=== PATIENT | male | born 1965 | race Caucasian/White ===

== ENCOUNTER 2023-10-23 07:53 | Outpatient (RCR) | payer BC, SELFPAY | END 2023-10-23 23:59 | disposition home or self-care (01) | LOC: RPT 07:53 | PROVIDERS: ATTENDING PHYSICIAN Physician Assistant Medical; FAMILY PHYSICIAN Internal Medicine | DX: M48.02 Spinal stenosis, cervical region (principal); Z73.6 Limitation of activities due to disability; Z98.1 Arthrodesis status | CPT/HCPCS: 97010; 97110; 97162; 97530 ==

== ENCOUNTER → 2023-10-23 09:14 | Outpatient (REF) | payer BC, SELFPAY ==
[2023-10-23 10:00] LABS: Amphetamines Negative (Negative); Barbiturates Negative (Negative); Benzodiazepines Positive (Negative)
[2023-10-23 10:01] LABS: Buprenorphine Negative (Negative); Cocaine Negative (Negative); Marijuana Negative (Negative); Methadone Negative (Negative); Methamphetamines Negative (Negative); Opiates Negative (Negative); Phencyclidine Negative (Negative); Tricyclic Antidepressants Negative (Negative)
[2023-10-23 10:37] LABS: Fentanyl, Urine Negative (Negative)
== END ==
LOC: REG 09:14
PROVIDERS: ATTENDING PHYSICIAN Physician Assistant Medical; FAMILY PHYSICIAN Internal Medicine
DX: G89.4 Chronic pain syndrome (principal); Z79.891 Long term (current) use of opiate analgesic
CPT/HCPCS: 80306; 80307

== ENCOUNTER 2023-11-06 07:08 | Outpatient (RCR) | payer BC, SELFPAY | END 2023-11-13 07:31 | disposition home or self-care (01) | LOC: RPT 07:08 | PROVIDERS: ATTENDING PHYSICIAN Physician Assistant Medical; FAMILY PHYSICIAN Internal Medicine | DX: Z47.89 Encounter for other orthopedic aftercare (principal); M48.02 Spinal stenosis, cervical region; Z73.6 Limitation of activities due to disability; M62.81 Muscle weakness (generalized); M43.22 Fusion of spine, cervical region | CPT/HCPCS: 97110 ==

== ENCOUNTER → 2024-01-12 11:12 | Outpatient (REF) | payer BC, SELFPAY ==
[2024-01-14 14:50] LABS: Amphetamine, Urine Negative ng/mL (Cutoff 300); Barbiturates, Urine Negative ng/mL (Cutoff 200); Benzodiazepines, Urine PresumptivePOS ng/mL (Cutoff 200); Buprenorphine, Urine Negative ng/mL (Cutoff 5); Carisoprodol, Urine Negative ng/mL (Cutoff 100); Cocaine, Urine Negative ng/mL (Cutoff 150); Ethyl Glucuronide, Urine PresumptivePOS ng/mL (Cutoff 500); Fentanyl, Urine Negative ng/mL (Cutoff 1); Marijuana, Urine Negative ng/mL (Cutoff 50); Meperidine, Urine Negative ng/mL (Cutoff 200); Methadone, Urine Negative ng/mL (Cutoff 150); Opiates, Urine PresumptivePOS ng/mL (Cutoff 300); Oxycodone/Oxymorphone, Urine PresumptivePOS ng/mL (Cutoff 100); PCP (Phencyclidine), Urine Negative ng/mL (Cutoff 25); Propoxyphene, Urine Negative ng/mL (Cutoff 300); Tapentadol, Urine Negative ng/mL (Cutoff 200); Tramadol, Urine Negative ng/mL (Cutoff 100); Zolpidem, Urine Negative ng/mL (Cutoff 20)
== END ==
LOC: HWLAB 11:12
PROVIDERS: ATTENDING PHYSICIAN Physician Assistant Medical; FAMILY PHYSICIAN Internal Medicine
DX: Z00.00 Encounter for general adult medical examination without abnormal findings (principal); Z79.891 Long term (current) use of opiate analgesic
CPT/HCPCS: 80307

== ENCOUNTER → 2024-01-22 07:36 | Outpatient (REF) | payer BC, SELFPAY ==
[2024-01-22 09:59] LABS: % Basophils 0.7 % (0-2); % Eosinophils 2.4 % (0-6); % Immature Granulocytes 0.4 % (0-0.5); % Lymphocytes 44.5 % (20.5-51.1); % Monocytes 9.7 % (1.7-9.3); % Neutrophils 42.3 % (42.2-75.2); Absolute Basophils 0.1 10^3/uL (0-0.2); Absolute Eosinophils 0.2 10^3/uL (0-0.7); Absolute Lymphocytes 3.3 10^3/uL (1.2-3.4); Absolute Monocytes 0.7 10^3/uL (0.1-0.6); Absolute Neutrophils 3.1 10^3/uL (1.4-6.5); Hematocrit 42.3 % (39.0-52.0); Hemoglobin 14.5 g/dL (13.0-18.0); Mean Corp Hgb Conc. 34.3 g/dL (33.0-37.0); Mean Corpuscular Hgb 30.7 pg (27.0-31.0); Mean Corpuscular Volume 89.4 fL (80.0-94.0); Mean Platelet Volume 10.9 fL (7.4-10.4); Nucleated Red Blood Cells % 0 % (-); Platelet Count 241 10^3/uL (130-400); Red Blood Cell Count 4.73 10^6/uL (4.70-6.10); Red Cell Dist. Width 13.6 % (11.5-14.5); White Blood Cell Count 7.4 10^3/uL (4.8-10.8)
[2024-01-22 10:35] LABS: ALT (SGPT) 18 U/L (0-50); AST (SGOT) 26 U/L (17-59); Albumin 4.3 g/dl (3.5-5.0); Alkaline Phosphatase 65 U/L (38-126); Blood Urea Nitrogen 15 mg/dl (9-20); Calcium 9.1 mg/dl (8.4-10.2); Carbon Dioxide 29 mmol/L (22-30); Chloride 104 mmol/L (98-107); Glucose 102 mg/dl (70-99); HDL Cholesterol 47 mg/dl; LDL Cholesterol, Calculated 160 mg/dl; Potassium 4.5 mmol/L (3.5-5.1); Sodium 140 mmol/L (135-145); Total Bilirubin 0.6 mg/dl (0.2-1.3); Total Cholesterol 236 mg/dl (50-199); Total Protein 7.4 g/dl (6.3-8.2); Triglyceride 146 mg/dl (10-149); Very Low Density Lipoprotein 29 mg/dl (0-30); eGFR > 60.00
[2024-01-22 11:01] LABS: PSA, Total - Screen 2.01 ng/ml (0.0-4.0)
== END ==
LOC: HWLAB 07:36
PROVIDERS: ATTENDING PHYSICIAN Internal Medicine
DX: Z00.00 Encounter for general adult medical examination without abnormal findings (principal); I10 Essential (primary) hypertension; E78.5 Hyperlipidemia, unspecified; M54.12 Radiculopathy, cervical region; Z68.25 Body mass index [BMI] 25.0-25.9, adult; Z12.11 Encounter for screening for malignant neoplasm of colon
CPT/HCPCS: 36415; 80053; 80061; 85025; G0103

== ENCOUNTER → 2024-03-22 10:30 | Outpatient (REF) | payer BC, SELFPAY ==
[2024-03-22 12:00] LABS: Amphetamines Negative (Negative); Barbiturates Negative (Negative); Benzodiazepines Positive (Negative); Buprenorphine Negative (Negative); Cocaine Negative (Negative); Marijuana Negative (Negative); Methadone Negative (Negative); Methamphetamines Negative (Negative); Opiates Negative (Negative); Phencyclidine Negative (Negative); Tricyclic Antidepressants Negative (Negative)
[2024-03-22 12:21] LABS: Fentanyl, Urine Negative (Negative)
== END ==
LOC: REG 10:30
PROVIDERS: ATTENDING PHYSICIAN Student in an Organized Health Care Education/Training Program; FAMILY PHYSICIAN Internal Medicine
DX: Z00.00 Encounter for general adult medical examination without abnormal findings (principal); Z79.891 Long term (current) use of opiate analgesic
CPT/HCPCS: 36415; 80306; 80307

== ENCOUNTER → 2024-05-25 08:43 | Outpatient (REF) | payer BC, SELFPAY ==
[2024-05-27 03:15] LABS: Amphetamine, Urine Negative ng/mL (Cutoff 300); Barbiturates, Urine Negative ng/mL (Cutoff 200); Benzodiazepines, Urine PresumptivePOS ng/mL (Cutoff 200); Buprenorphine, Urine Negative ng/mL (Cutoff 5); Carisoprodol, Urine Negative ng/mL (Cutoff 100); Cocaine, Urine Negative ng/mL (Cutoff 150); Ethyl Glucuronide, Urine PresumptivePOS ng/mL (Cutoff 500); Fentanyl, Urine Negative ng/mL (Cutoff 1); Marijuana, Urine Negative ng/mL (Cutoff 50); Meperidine, Urine Negative ng/mL (Cutoff 200); Methadone, Urine Negative ng/mL (Cutoff 150); Opiates, Urine PresumptivePOS ng/mL (Cutoff 300); Oxycodone/Oxymorphone, Urine PresumptivePOS ng/mL (Cutoff 100); PCP (Phencyclidine), Urine Negative ng/mL (Cutoff 25); Propoxyphene, Urine Negative ng/mL (Cutoff 300); Tapentadol, Urine Negative ng/mL (Cutoff 200); Tramadol, Urine Negative ng/mL (Cutoff 100); Zolpidem, Urine Negative ng/mL (Cutoff 20)
== END ==
LOC: REG 08:43
PROVIDERS: ATTENDING PHYSICIAN Student in an Organized Health Care Education/Training Program; FAMILY PHYSICIAN Internal Medicine
DX: Z00.00 Encounter for general adult medical examination without abnormal findings (principal); Z79.891 Long term (current) use of opiate analgesic
CPT/HCPCS: 36415; 80307

== ENCOUNTER → 2024-08-22 10:08 | Outpatient (REF) | payer BC, SELFPAY ==
[2024-08-22 11:16] LABS: Amphetamines Negative (Negative); Barbiturates Negative (Negative); Benzodiazepines Positive (Negative); Buprenorphine Negative (Negative); Cocaine Negative (Negative); HDL Cholesterol 43 mg/dl; LDL Cholesterol, Calculated 140 mg/dl; Methadone Negative (Negative); Methamphetamines Negative (Negative); Opiates Negative (Negative); Total Cholesterol 208 mg/dl (50-199); Triglyceride 129 mg/dl (10-149); Very Low Density Lipoprotein 25 mg/dl (0-30)
[2024-08-22 11:17] LABS: Marijuana Negative (Negative); Phencyclidine Negative (Negative); Tricyclic Antidepressants Negative (Negative)
[2024-08-22 11:43] LABS: Fentanyl, Urine Negative (Negative)
== END ==
LOC: REG 10:08
PROVIDERS: ATTENDING PHYSICIAN Internal Medicine; FAMILY PHYSICIAN Physician Assistant Medical
DX: Z79.891 Long term (current) use of opiate analgesic (principal); Z00.00 Encounter for general adult medical examination without abnormal findings; E78.5 Hyperlipidemia, unspecified
CPT/HCPCS: 36415; 80061; 80306; 80307

== ENCOUNTER → 2024-11-18 12:37 | Outpatient (REF) | payer OTHER, SELFPAY ==
[2024-11-18 15:58] LABS: Erythrocyte Sed Rate 26 mm/hour (0-20)
[2024-11-20 20:43] LABS: ANA, IgG Reflex to HEp-2 None Detected (None Detected)
== END ==
LOC: HWLAB 12:37
PROVIDERS: ATTENDING PHYSICIAN Internal Medicine
DX: M79.18 Myalgia, other site (principal); M25.50 Pain in unspecified joint
CPT/HCPCS: 36415; 85652; 86038; 86140; 86430; 86618; 86747

== ENCOUNTER → 2024-12-02 13:04 | Outpatient (REF) | payer OTHER, SELFPAY | LOC: HWRAD 13:04 | PROVIDERS: ATTENDING PHYSICIAN Internal Medicine; FAMILY PHYSICIAN Internal Medicine | DX: M25.511 Pain in right shoulder (principal); M25.512 Pain in left shoulder; M25.559 Pain in unspecified hip | CPT/HCPCS: 73030; 73521 ==

== ENCOUNTER → 2025-01-31 13:20 | Outpatient (REF) | payer OTHER, SELFPAY | LOC: HWRAD 13:20 | PROVIDERS: ATTENDING PHYSICIAN Internal Medicine; FAMILY PHYSICIAN Internal Medicine | DX: R06.02 Shortness of breath (principal); Z22.7 Latent tuberculosis; M45.A0 Non-radiographic axial spondyloarthritis of unspecified sites in spine | CPT/HCPCS: 71046 ==

== ENCOUNTER → 2025-02-27 07:39 | Outpatient (REF) | payer OTHER, SELFPAY ==
[2025-02-27 08:25] LABS: % Basophils 0.5 % (0-2); % Eosinophils 0.6 % (0-6); % Immature Granulocytes 0.8 % (0-0.5); % Neutrophils 58.1 % (42.2-75.2); Absolute Basophils 0.1 10^3/uL (0-0.2); Absolute Eosinophils 0.1 10^3/uL (0-0.7); Absolute Immature Granulocytes 0.1 10^3/uL (0-0.05); Absolute Lymphocytes 4.1 10^3/uL (1.2-3.4); Absolute Monocytes 0.9 10^3/uL (0.1-0.6); Absolute Neutrophils 7.1 10^3/uL (1.4-6.5); Hematocrit 44.2 % (39.0-52.0); Hemoglobin 14.8 g/dL (13.0-18.0); Mean Corp Hgb Conc. 33.5 g/dL (33.0-37.0); Mean Corpuscular Volume 92.5 fL (80.0-94.0); Mean Platelet Volume 10.2 fL (7.4-10.4); Nucleated Red Blood Cells % 0 % (-); Platelet Count 261 10^3/uL (130-400); Red Blood Cell Count 4.78 10^6/uL (4.70-6.10); Red Cell Dist. Width 13.7 % (11.5-14.5); White Blood Cell Count 12.3 10^3/uL (4.8-10.8)
[2025-02-27 10:03] LABS: ALT (SGPT) 18 U/L (0-50); AST (SGOT) 19 U/L (17-59); Albumin 4.2 g/dl (3.5-5.0); Alkaline Phosphatase 55 U/L (38-126); Blood Urea Nitrogen 22 mg/dl (9-20); Calcium 9.5 mg/dl (8.4-10.2); Carbon Dioxide 29 mmol/L (22-30); Chloride 106 mmol/L (98-107); Glucose 103 mg/dl (70-99); HDL Cholesterol 49 mg/dl; LDL Cholesterol, Calculated 137 mg/dl; Potassium 4.5 mmol/L (3.5-5.1); Sodium 142 mmol/L (135-145); Total Bilirubin 0.5 mg/dl (0.2-1.3); Total Cholesterol 229 mg/dl (50-199); Total Protein 7.1 g/dl (6.3-8.2); Triglyceride 217 mg/dl (10-149); Very Low Density Lipoprotein 43 mg/dl (0-30); eGFR > 60.00
[2025-02-27 10:15] LABS: PSA, Total - Screen 1.69 ng/ml (0.0-4.0)
== END ==
LOC: REG 07:39
PROVIDERS: ATTENDING PHYSICIAN Internal Medicine
DX: Z00.01 Encounter for general adult medical examination with abnormal findings (principal); Z12.5 Encounter for screening for malignant neoplasm of prostate; E78.5 Hyperlipidemia, unspecified
CPT/HCPCS: 36415; 80053; 80061; 85025; G0103

== ENCOUNTER → 2025-03-09 08:04 | Outpatient (REF) | payer OTHER, SELFPAY | LOC: RSP 08:04 | PROVIDERS: ATTENDING PHYSICIAN Internal Medicine | DX: R06.02 Shortness of breath (principal) | CPT/HCPCS: 88738; 94010; 94727; 94729 ==